=== PATIENT | female | born 1970 | race Caucasian/White ===

== ENCOUNTER 2022-05-02 21:25 | Emergency (ER) | payer MEDICAID ==
[~2022-05-02] VITALS: Ht 162.6 cm; Wt 48.0 kg
[~2022-05-02 21:25] MED LIST: LEVO500T2; METFORMIN
[2022-05-02] MEDS ORDERED: ONDANSETRON HCL 4MG/2ML INJ IV STA (23:54)
[2022-05-02] MEDS ORDERED: KETOROLAC 30MG/ML VIAL IV STA (23:54)
[2022-05-03] MEDS ORDERED: SODIUM CHLORIDE 0.9% 1,000 ML IV ONE
[2022-05-03 02:27] LABS: CLARITY URINE TURBID (CLEAR); COLOR URINE YELLOW (YELLOW); KETONES URINE NEGATIVE (NEGATIVE); LEUKOCYTE ESTERASE URINE 3+ (NEGATIVE); NITRITE URINE POSITIVE (NEGATIVE); OCCULT BLOOD URINE 2+ (NEGATIVE); PH URINE 6.5 (4.5-8.0); PROTEIN URINE 2+ (NEGATIVE); SPECIFIC GRAVITY URINE 1.006 (1.005-1.030); UROBILINOGEN URINE 0.2 E.U./dL (0.2-1.0)
[2022-05-03] MEDS ORDERED: ONDANSETRON HCL 4MG/2ML INJ IV NR (04:30)
[2022-05-03] MEDS ORDERED: KETOROLAC 30MG/ML VIAL IV NR (04:30)
[2022-05-03 05:01] LABS: BASOPHILS % 0.8 % (0.0-2.0); EOSINOPHILS % 1.4 % (0.0-5.0); HEMATOCRIT. 25.9 % (36.0-48.0); HEMOGLOBIN. 8.7 g/dL (12.0-16.0); LYMPHOCYTES % 39.9 % (20.0-50.0); MEAN CORPUSCULAR HEMOGLOBIN 37.6 pg (28.0-32.0); MEAN CORPUSCULAR VOLUME 112.1 fL (81.0-99.0); MEAN PLATELET VOLUME 6.9 fl (7.4-10.4); MONOCYTES % 8.3 % (2.0-8.0); NEUTROPHILS % 49.6 % (40.0-76.0); RED BLOOD CELL COUNT 2.31 mill/uL (4.2-5.4); RED CELL DISTRIBUTION WIDTH 13.6 % (11.6-14.6)
[2022-05-03 05:07] LABS: CHLORIDE 105 mEq/L (98-107)
[2022-05-03 05:09] LABS: PLATELET 41 x1000/uL (130-400)
[2022-05-03 05:18] LABS: ETHANOL BLOOD 297 mg/dL
[2022-05-03 05:20] LABS: PLATELET ESTIMATE DECREASED
[2022-05-03] MEDS ORDERED: CEPH500C2 MT (06:09)
[2022-05-03] MEDS ORDERED: CHLORDIAZEPOXIDE 25MG CAPSULE PO ONE (06:15)
[2022-05-03 06:47] VITALS: BP 125/77
== END 2022-05-03 06:46 | disposition home or self-care (01) ==
LOC: ER 21:25
DX: N10 Acute pyelonephritis (principal); T51.0X1A Toxic effect of ethanol, accidental (unintentional), initial encounter; E11.9 Type 2 diabetes mellitus without complications; D69.6 Thrombocytopenia, unspecified; Y90.8 Blood alcohol level of 240 mg/100 ml or more; Z79.84 Long term (current) use of oral hypoglycemic drugs; Y92.018 Other place in single-family (private) house as the place of occurrence of the external cause
CPT/HCPCS: 36415; 80053; 80320; 81003; 81025; 82962; 83690; 85025; 87077; 87086; 87186; 96374; 96375; 99284; J1885; J2405; G0480

== ENCOUNTER 2022-08-18 15:27 | Inpatient (IN) | payer MEDICAID ==
[~2022-08-18] VITALS: Ht 162.6 cm; Wt 78.0 kg
[~2022-08-18 15:27] MED LIST changes: +CEPH500C2 MT
[2022-08-18] MEDS ORDERED: SODIUM CHLORIDE 0.9% 1000ML BAG (SEPSIS BOLUS) IV ONE (16:15)
[2022-08-18] MEDS ORDERED: VANCOMYCIN 1G PREMIX 200 ML IV ONE (16:15)
[2022-08-18] MEDS ORDERED: CEFTRIAXONE 1 G PREMIX 50 ML IV ONE (16:15)
[2022-08-18 16:31] LABS: CLARITY URINE TURBID (CLEAR); COLOR URINE DARK YELLOW (YELLOW); KETONES URINE TRACE (NEGATIVE); LEUKOCYTE ESTERASE URINE 3+ (NEGATIVE); NITRITE URINE NEGATIVE (NEGATIVE); OCCULT BLOOD URINE 2+ (NEGATIVE); PH URINE 7.5 (4.5-8.0); PROTEIN URINE 3+ (NEGATIVE); SPECIFIC GRAVITY URINE 1.013 (1.005-1.030)
[2022-08-18 16:45] LABS: BASOPHILS % 0.2 % (0.0-2.0); EOSINOPHILS % 0.3 % (0.0-5.0); LYMPHOCYTES % 11.6 % (20.0-50.0); MEAN CORPUSCULAR HEMOGLOBIN 40.5 pg (28.0-32.0); MEAN CORPUSCULAR VOLUME 122.4 fL (81.0-99.0); MONOCYTES % 13.1 % (2.0-8.0); NEUTROPHILS % 74.8 % (40.0-76.0); RED BLOOD CELL COUNT 1.68 mill/uL (4.2-5.4); RED CELL DISTRIBUTION WIDTH 16.3 % (11.6-14.6)
[2022-08-18 16:51] LABS: HEMATOCRIT. 20.6 % (36.0-48.0); HEMOGLOBIN. 6.8 g/dL (12.0-16.0)
[2022-08-18 16:59] LABS: ETHANOL BLOOD < 10 mg/dL
[2022-08-18 17:03] LABS: CHLORIDE 105 mEq/L (98-107)
[2022-08-18 17:06] LABS: HCG SCREEN NEGATIVE
[2022-08-18 17:22] LABS: *AMPHETAMINES SCREEN URINE NEGATIVE (NEGATIVE); *BARBITURATES SCREEN URINE NEGATIVE (NEGATIVE); *BENZODIAZEPINES SCREEN URINE NEGATIVE (NEGATIVE); *COCAINE SCREEN URINE NEGATIVE (NEGATIVE); CANNABINOID URINE SCREEN PRESUMTIVE POSITIVE (NEGATIVE); METHADONE URINE SCREEN NEGATIVE (NEGATIVE); OPIATES URINE SCREEN NEGATIVE (NEGATIVE); PHENCYCLIDINE URINE SCREEN NEGATIVE (NEGATIVE)
[2022-08-18 17:54] LABS: PLATELET ESTIMATE MARKEDLY DECREASED
[2022-08-18 17:57] LABS: MEAN PLATELET VOLUME 9.9 fl (7.4-10.4); PLATELET 47 x1000/uL (130-400)
[2022-08-18] MEDS ORDERED: CLONIDINE 0.1MG TABLET PO PRN (20:45)
[2022-08-18] MEDS ORDERED: KETOROLAC 15MG/ML VIAL IV PRN (20:45)
[2022-08-18] MEDS ORDERED: ACETAMINOPHEN 325MG TABLET PO PRN (20:45)
[2022-08-18] MEDS ORDERED: DOCUSATE SODIUM 100MG CAPSULE PO PRN (20:45)
[2022-08-18] MEDS ORDERED: NITROGLYCERIN 0.4MG TABLET SL SL PRN (20:45)
[2022-08-18] MEDS ORDERED: MAGNESIUM/ALUMINUM HYDROXIDE/SIMETHICONE 30ML UDC PO PRN (20:45)
[2022-08-18] MEDS ORDERED: ZOLPIDEM TARTRATE 5MG TABLET PO PRN (20:45)
[2022-08-18] MEDS ORDERED: ONDANSETRON HCL 4MG/2ML INJ IV PRN (20:45)
[2022-08-18 21:55] LABS: T4 FREE 0.81 ng/dL (0.76-1.46)
[2022-08-18 22:00] VITALS: BP 100/65
[2022-08-19] VITALS (10 sets, daily range): BP systolic 92–114; BP diastolic 60–80
[2022-08-19 06:33] LABS: BASOPHILS % 0.3 % (0.0-2.0); EOSINOPHILS % 1.2 % (0.0-5.0); HEMATOCRIT. 22.1 % (36.0-48.0); HEMOGLOBIN. 7.6 g/dL (12.0-16.0); LYMPHOCYTES % 19.3 % (20.0-50.0); MEAN CORPUSCULAR HEMOGLOBIN 38.9 pg (28.0-32.0); MEAN PLATELET VOLUME 8.5 fl (7.4-10.4); MONOCYTES % 13.6 % (2.0-8.0); NEUTROPHILS % 65.6 % (40.0-76.0); RED BLOOD CELL COUNT 1.96 mill/uL (4.2-5.4); RED CELL DISTRIBUTION WIDTH 18.5 % (11.6-14.6)
[2022-08-19 06:53] LABS: CHLORIDE 106 mEq/L (98-107); PHOSPHORUS 1.5 mg/dL (2.5-4.9)
[2022-08-19 07:03] LABS: PLATELET 31 x1000/uL (130-400)
[2022-08-19] MEDS ORDERED: POTASSIUM CHLORIDE 20MEQ TABLET SR PO NR (07:45)
[2022-08-19] MEDS: INSULIN LISPRO 100 UNITS/ML SUBCUT SCH ×4 (08:20→22:39)
[2022-08-19] MEDS ORDERED: CEFTRIAXONE 1 G PREMIX 50 ML IV SCH (09:00)
[2022-08-19] MEDS: PANTOPRAZOLE SODIUM 40 MG/VIAL IV SCH (09:51)
[2022-08-19] MEDS: BLOOD SUGAR DIAGNOSTIC STRIP TEST SCH ×4 (09:53→21:00)
[2022-08-19] MEDS ORDERED: POTASSIUM CHLORIDE INJ 40 MEQ in DEXT 5%/0.9% NACL 1,000 ML IV SCH (12:00)
[2022-08-19] MEDS ORDERED: POTASSIUM PHOS,M-BASIC-D-BASIC 30 MMOL in DEXT 5% WATER 500 ML IV SCH (13:00)
[2022-08-19] MEDS ORDERED: MAGNESIUM 4 G PREMIX 100 ML IV SCH (13:00)
[2022-08-19] MEDS: CEFTRIAXONE 1,000 MG in DEXTROSE 5% WATER 50 ML IV SCH (14:42)
[2022-08-19] MEDS: KCL 20MEQ/100ML X 2 FOR TOTAL KCL 40MEQ/200ML IV SCH ×2 (15:19→17:44)
[2022-08-19 17:00] LABS: INR 1.6; PROTHROMBIN TIME 16.1 sec (9.6-11.0)
[2022-08-19] MEDS: DEXT 5%/LACTATED RINGERS 1,000 ML IV SCH ×2 (20:30→21:00)
[2022-08-20] VITALS (14 sets, daily range): BP systolic 86–132; BP diastolic 54–72
[2022-08-20] MEDS: BLOOD SUGAR DIAGNOSTIC STRIP TEST SCH ×4 (06:43→21:13)
[2022-08-20 07:16] LABS: HEMATOCRIT. 22.3 % (36.0-48.0); HEMOGLOBIN. 7.7 g/dL (12.0-16.0); MEAN CORPUSCULAR VOLUME 112.6 fL (81.0-99.0); RED BLOOD CELL COUNT 1.98 mill/uL (4.2-5.4); RED CELL DISTRIBUTION WIDTH 18.7 % (11.6-14.6)
[2022-08-20] MEDS: INSULIN LISPRO 100 UNITS/ML SUBCUT SCH ×4 (07:20→21:00)
[2022-08-20 08:41] LABS: PLATELET ESTIMATE MARKEDLY DECREASED
[2022-08-20 08:48] LABS: PLATELET 34 x1000/uL (130-400)
[2022-08-20] MEDS: PANTOPRAZOLE SODIUM 40 MG/VIAL IV SCH ×2 (08:55→21:13)
[2022-08-20] MEDS: CEFTRIAXONE 1,000 MG in DEXTROSE 5% WATER 50 ML IV SCH (08:55)
[2022-08-20 09:04] LABS: CHLORIDE 109 mEq/L (98-107)
[2022-08-20] MEDS ORDERED: PHYTONADIONE 10MG/ML AMP SUBCUT NR (11:15)
[2022-08-20 12:09] LABS: HEPATITIS B SURFACE ANTIGEN NEGATIVE
[2022-08-20] MEDS: DEXT 5%/LACTATED RINGERS 1,000 ML IV SCH (13:55)
[2022-08-21] VITALS (21 sets, daily range): BP systolic 75–125; BP diastolic 36–74
[2022-08-21 03:35] LABS: HEMATOCRIT. 24.5 % (36.0-48.0); HEMOGLOBIN. 8.2 g/dL (12.0-16.0); MEAN CORPUSCULAR HEMOGLOBIN 38.8 pg (28.0-32.0); MEAN CORPUSCULAR VOLUME 115.7 fL (81.0-99.0); MEAN PLATELET VOLUME 8.8 fl (7.4-10.4); RED BLOOD CELL COUNT 2.11 mill/uL (4.2-5.4); RED CELL DISTRIBUTION WIDTH 19.2 % (11.6-14.6)
[2022-08-21 03:43] LABS: INR 1.4; PLATELET 34 x1000/uL (130-400); PROTHROMBIN TIME 14.5 sec (9.6-11.0)
[2022-08-21] MEDS: DEXT 5%/LACTATED RINGERS 1,000 ML IV SCH (04:30)
[2022-08-21] MEDS ORDERED: PHYTONADIONE 10MG/ML AMP SUBCUT NR (04:45)
[2022-08-21 05:00] LABS: PLATELET ESTIMATE MARKEDLY DECREASED
[2022-08-21] MEDS: INSULIN LISPRO 100 UNITS/ML SUBCUT SCH ×4 (07:20→21:00)
[2022-08-21] MEDS: BLOOD SUGAR DIAGNOSTIC STRIP TEST SCH ×4 (07:39→21:10)
[2022-08-21] MEDS ORDERED: DEXT 5%/0.45% NACL 500ML 1,000 ML IV SCH (08:00)
[2022-08-21] MEDS ORDERED: LIDOCAINE HCL 1% 30ML VIAL (10MG/ML) ONE (09:20)
[2022-08-21] MEDS ORDERED: LACTULOSE 20G/30ML UDC PO NR (11:00)
[2022-08-21] MEDS: CEFTRIAXONE 1,000 MG in DEXTROSE 5% WATER 50 ML IV SCH (15:58)
[2022-08-21] MEDS: PANTOPRAZOLE SODIUM 40 MG/VIAL IV SCH ×2 (15:58→21:27)
[2022-08-21] MEDS: ACETAMINOPHEN 325MG TABLET PO PRN (18:17)
[2022-08-21] MEDS: DEXT 5%/0.45% NACL 1000ML 1,000 ML IV SCH (22:45)
[2022-08-22] VITALS (32 sets, daily range): BP systolic 85–118; BP diastolic 51–97
[2022-08-22 03:44] LABS: INR 1.3; PROTHROMBIN TIME 13.8 sec (9.6-11.0)
[2022-08-22 04:11] LABS: HEPATITIS B SURFACE ANTIGEN NEGATIVE
[2022-08-22] MEDS: BLOOD SUGAR DIAGNOSTIC STRIP TEST SCH ×4 (06:47→20:25)
[2022-08-22] MEDS: INSULIN LISPRO 100 UNITS/ML SUBCUT SCH ×4 (07:20→20:27)
[2022-08-22] MEDS: PANTOPRAZOLE SODIUM 40 MG/VIAL IV SCH ×2 (09:36→20:27)
[2022-08-22] MEDS: CEFTRIAXONE 1,000 MG in DEXTROSE 5% WATER 50 ML IV SCH (09:36)
[2022-08-22 10:25] LABS: BASOPHILS % 0.8 % (0.0-2.0); EOSINOPHILS % 1.1 % (0.0-5.0); LYMPHOCYTES % 28.7 % (20.0-50.0); MEAN CORPUSCULAR HEMOGLOBIN 38.8 pg (28.0-32.0); MEAN CORPUSCULAR VOLUME 113.5 fL (81.0-99.0); MONOCYTES % 14.7 % (2.0-8.0); NEUTROPHILS % 54.7 % (40.0-76.0); RED CELL DISTRIBUTION WIDTH 18.4 % (11.6-14.6)
[2022-08-22 10:36] LABS: HEMATOCRIT. 18.2 % (36.0-48.0); HEMOGLOBIN. 6.2 g/dL (12.0-16.0); PLATELET 33 x1000/uL (130-400)
[2022-08-22] MEDS: DEXT 5%/0.45% NACL 1000ML 1,000 ML IV SCH (11:17)
[2022-08-22] MEDS: OCTREOTIDE 1,000 MCG in SODIUM CHLORIDE 0.9% 98 ML IV SCH (18:10)
[2022-08-23] VITALS (18 sets, daily range): BP systolic 98–138; BP diastolic 58–104
[2022-08-23] MEDS: DEXT 5%/0.45% NACL 1000ML 1,000 ML IV SCH ×2 (00:54→14:52)
[2022-08-23] MEDS: BLOOD SUGAR DIAGNOSTIC STRIP TEST SCH ×4 (06:52→21:55)
[2022-08-23] MEDS: INSULIN LISPRO 100 UNITS/ML SUBCUT SCH ×4 (07:20→21:00)
[2022-08-23 08:14] LABS: BASOPHILS % 0.6 % (0.0-2.0); EOSINOPHILS % 0.7 % (0.0-5.0); HEMATOCRIT. 31.3 % (36.0-48.0); HEMOGLOBIN. 10.7 g/dL (12.0-16.0); LYMPHOCYTES % 20.5 % (20.0-50.0); MEAN CORPUSCULAR HEMOGLOBIN 32.8 pg (28.0-32.0); MEAN CORPUSCULAR VOLUME 95.8 fL (81.0-99.0); MEAN PLATELET VOLUME 8.7 fl (7.4-10.4); MONOCYTES % 10.4 % (2.0-8.0); NEUTROPHILS % 67.8 % (40.0-76.0); RED BLOOD CELL COUNT 3.27 mill/uL (4.2-5.4); RED CELL DISTRIBUTION WIDTH 28.8 % (11.6-14.6)
[2022-08-23 08:23] LABS: INR 1.3
[2022-08-23 08:42] LABS: PLATELET 43 x1000/uL (130-400)
[2022-08-23] MEDS: CEFTRIAXONE 1,000 MG in DEXTROSE 5% WATER 50 ML IV SCH (09:59)
[2022-08-23] MEDS: PANTOPRAZOLE SODIUM 40 MG/VIAL IV SCH ×2 (09:59→21:58)
[2022-08-23 13:07] LABS: PLATELET ESTIMATE MARKEDLY DECREASED
[2022-08-23] MEDS: OCTREOTIDE 1,000 MCG in SODIUM CHLORIDE 0.9% 98 ML IV SCH (14:52)
[2022-08-24] VITALS (14 sets, daily range): BP systolic 122–143; BP diastolic 73–103
[2022-08-24] MEDS: DEXT 5%/0.45% NACL 1000ML 1,000 ML IV SCH ×2 (03:57→17:14)
[2022-08-24] MEDS: BLOOD SUGAR DIAGNOSTIC STRIP TEST SCH ×4 (07:47→20:46)
[2022-08-24] MEDS: PANTOPRAZOLE SODIUM 40 MG/VIAL IV SCH ×2 (08:35→20:37)
[2022-08-24] MEDS: CEFTRIAXONE 1,000 MG in DEXTROSE 5% WATER 50 ML IV SCH (08:36)
[2022-08-24] MEDS: INSULIN LISPRO 100 UNITS/ML SUBCUT SCH ×4 (08:37→20:46)
[2022-08-24 10:20] LABS: BASOPHILS % 0.8 % (0.0-2.0); EOSINOPHILS % 0.6 % (0.0-5.0); LYMPHOCYTES % 17.2 % (20.0-50.0); MEAN CORPUSCULAR HEMOGLOBIN 33.1 pg (28.0-32.0); MEAN CORPUSCULAR VOLUME 95.9 fL (81.0-99.0); MEAN PLATELET VOLUME 8.7 fl (7.4-10.4); MONOCYTES % 8.5 % (2.0-8.0); NEUTROPHILS % 72.9 % (40.0-76.0); RED BLOOD CELL COUNT 3.34 mill/uL (4.2-5.4); RED CELL DISTRIBUTION WIDTH 28.3 % (11.6-14.6)
[2022-08-24 10:26] LABS: CHLORIDE 107 mEq/L (98-107)
[2022-08-24 10:27] LABS: INR 1.4; PROTHROMBIN TIME 14.7 sec (9.6-11.0)
[2022-08-24] MEDS ORDERED: PROPOFOL 200MG/20ML VIAL IV ONE (10:43)
[2022-08-24] MEDS ORDERED: PHENYLEPHRINE HCL 10 MG/ML 1ML (IV VIAL) IV ONE (10:48)
[2022-08-24] MEDS: OCTREOTIDE 1,000 MCG in SODIUM CHLORIDE 0.9% 98 ML IV SCH (12:32)
[2022-08-24 12:52] LABS: PLATELET 41 x1000/uL (130-400)
[2022-08-24] MEDS: ACETAMINOPHEN 325MG TABLET PO PRN (20:37)
[2022-08-24] MEDS ORDERED: SORBITOL 70% SOLN 30ML PO SCH (21:00)
[2022-08-25] VITALS (14 sets, daily range): BP systolic 117–144; BP diastolic 72–95
[2022-08-25] MEDS: OCTREOTIDE 1,000 MCG in SODIUM CHLORIDE 0.9% 98 ML IV SCH (03:51)
[2022-08-25] MEDS ORDERED: SORBITOL 70% SOLN 30ML PO SCH (06:00)
[2022-08-25] MEDS: INSULIN LISPRO 100 UNITS/ML SUBCUT SCH ×4 (07:20→21:37)
[2022-08-25] MEDS: BLOOD SUGAR DIAGNOSTIC STRIP TEST SCH ×4 (07:30→21:24)
[2022-08-25] MEDS: DEXT 5%/0.45% NACL 1000ML 1,000 ML IV SCH (07:31)
[2022-08-25] MEDS ORDERED: NA PHOS,M-B/NA PHOS,DI-BA ENEMA 118ML PR SCH ×2 (08:00→08:15)
[2022-08-25] MEDS: PANTOPRAZOLE SODIUM 40 MG/VIAL IV SCH ×2 (09:14→21:24)
[2022-08-25 12:08] LABS: BASOPHILS % 0.2 % (0.0-2.0); EOSINOPHILS % 0.3 % (0.0-5.0); HEMATOCRIT. 32.7 % (36.0-48.0); HEMOGLOBIN. 11.2 g/dL (12.0-16.0); LYMPHOCYTES % 18.7 % (20.0-50.0); MEAN CORPUSCULAR HEMOGLOBIN 32.8 pg (28.0-32.0); MEAN CORPUSCULAR VOLUME 96.2 fL (81.0-99.0); MEAN PLATELET VOLUME 8.3 fl (7.4-10.4); MONOCYTES % 6.2 % (2.0-8.0); NEUTROPHILS % 74.6 % (40.0-76.0)
[2022-08-25 12:14] LABS: PLATELET 41 x1000/uL (130-400)
[2022-08-25 12:20] LABS: INR 1.5; PROTHROMBIN TIME 15.6 sec (9.6-11.0)
[2022-08-25] MEDS ORDERED: SIMETHICONE 40 MG/0.6 ML 15ML ONE (14:50)
[2022-08-25] MEDS ORDERED: PROPOFOL 200MG/20ML VIAL IV ONE (15:04)
[2022-08-25] MEDS ORDERED: MIDAZOLAM HCL 2 MG/2 ML VIAL ONE (15:05)
[2022-08-25] MEDS ORDERED: DEXAMETHASONE 4MG/ML 1ML VIAL ONE (15:06)
[2022-08-25] MEDS ORDERED: ONDANSETRON HCL 4MG/2ML INJ ONE (15:06)
[2022-08-25] MEDS ORDERED: FENTANYL CITRATE/PF 50MCG/ML 2ML VIAL ONE (15:06)
[2022-08-26] VITALS (14 sets, daily range): BP systolic 113–140; BP diastolic 64–88
[2022-08-26] MEDS: INSULIN LISPRO 100 UNITS/ML SUBCUT SCH ×4 (07:20→22:05)
[2022-08-26] MEDS: BLOOD SUGAR DIAGNOSTIC STRIP TEST SCH ×4 (08:09→22:05)
[2022-08-26] MEDS: DEXT 5%/0.45% NACL 1000ML 1,000 ML IV SCH ×2 (08:40→22:06)
[2022-08-26] MEDS: PANTOPRAZOLE SODIUM 40 MG/VIAL IV SCH ×2 (09:45→22:06)
[2022-08-26] MEDS: FOLIC ACID 1MG TABLET PO SCH (12:24)
[2022-08-26] MEDS: THIAMINE HCL 100MG TABLET PO SCH (12:24)
[2022-08-26 12:39] LABS: BASOPHILS % 0.3 % (0.0-2.0); EOSINOPHILS % 0.5 % (0.0-5.0); HEMATOCRIT. 30.7 % (36.0-48.0); HEMOGLOBIN. 10.2 g/dL (12.0-16.0); LYMPHOCYTES % 14.3 % (20.0-50.0); MEAN CORPUSCULAR HEMOGLOBIN 32.2 pg (28.0-32.0); MEAN CORPUSCULAR VOLUME 96.8 fL (81.0-99.0); NEUTROPHILS % 78.9 % (40.0-76.0); RED BLOOD CELL COUNT 3.17 mill/uL (4.2-5.4); RED CELL DISTRIBUTION WIDTH 28.5 % (11.6-14.6)
[2022-08-26 12:48] LABS: PLATELET 31 x1000/uL (130-400)
[2022-08-26 13:37] LABS: PLATELET ESTIMATE MARKEDLY DECREASED
[2022-08-26] MEDS: ACETAMINOPHEN 325MG TABLET PO PRN (22:06)
[2022-08-27] VITALS (13 sets, daily range): BP systolic 108–140; BP diastolic 57–93
[2022-08-27] MEDS: BLOOD SUGAR DIAGNOSTIC STRIP TEST SCH ×4 (06:27→23:17)
[2022-08-27] MEDS: INSULIN LISPRO 100 UNITS/ML SUBCUT SCH ×4 (06:27→23:17)
[2022-08-27] MEDS: ACETAMINOPHEN 325MG TABLET PO PRN ×3 (06:30→17:21)
[2022-08-27 06:51] LABS: BASOPHILS % 0.7 % (0.0-2.0); EOSINOPHILS % 0.5 % (0.0-5.0); HEMATOCRIT. 29.1 % (36.0-48.0); HEMOGLOBIN. 9.8 g/dL (12.0-16.0); LYMPHOCYTES % 18.4 % (20.0-50.0); MEAN CORPUSCULAR HEMOGLOBIN 32.8 pg (28.0-32.0); MEAN CORPUSCULAR VOLUME 96.9 fL (81.0-99.0); MEAN PLATELET VOLUME 8.2 fl (7.4-10.4); NEUTROPHILS % 75.4 % (40.0-76.0)
[2022-08-27 07:07] LABS: PLATELET 27 x1000/uL (130-400)
[2022-08-27] MEDS: PANTOPRAZOLE SODIUM 40 MG/VIAL IV SCH ×2 (09:11→23:17)
[2022-08-27] MEDS: THIAMINE HCL 100MG TABLET PO SCH (09:11)
[2022-08-27] MEDS: FOLIC ACID 1MG TABLET PO SCH (09:11)
[2022-08-27] MEDS ORDERED: FERR325T6 MT (11:08)
[2022-08-27] MEDS ORDERED: FOLI-43 PO (11:08)
[2022-08-27] MEDS ORDERED: THIA100T72 PO (11:08)
[2022-08-27] MEDS ORDERED: OMEP40CA20 MT (11:08)
[2022-08-27] MEDS ORDERED: SUCR1TAB30 MT (11:08)
[2022-08-27] MEDS: DEXT 5%/0.45% NACL 1000ML 1,000 ML IV SCH ×2 (11:20→23:18)
[2022-08-28] VITALS (14 sets, daily range): BP systolic 108–143; BP diastolic 55–86
[2022-08-28 07:12] LABS: BASOPHILS % 0.8 % (0.0-2.0); EOSINOPHILS % 0.3 % (0.0-5.0); HEMATOCRIT. 30.9 % (36.0-48.0); LYMPHOCYTES % 30.9 % (20.0-50.0); MEAN CORPUSCULAR HEMOGLOBIN 32.7 pg (28.0-32.0); MEAN CORPUSCULAR VOLUME 100.7 fL (81.0-99.0); MEAN PLATELET VOLUME 8.7 fl (7.4-10.4); MONOCYTES % 4.2 % (2.0-8.0); NEUTROPHILS % 63.8 % (40.0-76.0); RED BLOOD CELL COUNT 3.06 mill/uL (4.2-5.4); RED CELL DISTRIBUTION WIDTH 27.8 % (11.6-14.6)
[2022-08-28] MEDS: BLOOD SUGAR DIAGNOSTIC STRIP TEST SCH ×4 (07:13→22:01)
[2022-08-28] MEDS: INSULIN LISPRO 100 UNITS/ML SUBCUT SCH ×4 (07:14→22:01)
[2022-08-28] MEDS: THIAMINE HCL 100MG TABLET PO SCH (08:57)
[2022-08-28] MEDS: PANTOPRAZOLE SODIUM 40 MG/VIAL IV SCH (08:57)
[2022-08-28] MEDS: FOLIC ACID 1MG TABLET PO SCH (08:57)
[2022-08-28 09:34] LABS: PLATELET 25 x1000/uL (130-400)
[2022-08-28] MEDS: SUCRALFATE 1 G/10 ML UDC PO SCH ×3 (12:04→22:05)
[2022-08-28] MEDS: DEXT 5%/0.45% NACL 1000ML 1,000 ML IV SCH (14:50)
[2022-08-28] MEDS: GUAIFENESIN 200MG/10ML SUGAR FREE UDC PO PRN (22:00)
[2022-08-29] VITALS (12 sets, daily range): BP systolic 118–149; BP diastolic 67–99
[2022-08-29] MEDS: DEXT 5%/0.45% NACL 1000ML 1,000 ML IV SCH ×3 (03:20→16:40)
[2022-08-29] MEDS: BLOOD SUGAR DIAGNOSTIC STRIP TEST SCH ×4 (06:50→21:00)
[2022-08-29] MEDS: OMEPRAZOLE 20MG CAPSULE EXTENDED RELEASE PO SCH (06:50)
[2022-08-29] MEDS: SUCRALFATE 1 G/10 ML UDC PO SCH ×4 (06:50→21:00)
[2022-08-29] MEDS: INSULIN LISPRO 100 UNITS/ML SUBCUT SCH ×4 (06:50→21:00)
[2022-08-29] MEDS: THIAMINE HCL 100MG TABLET PO SCH (08:17)
[2022-08-29] MEDS: FOLIC ACID 1MG TABLET PO SCH (08:17)
[2022-08-29 09:38] LABS: BASOPHILS % 0.4 % (0.0-2.0); EOSINOPHILS % 0.2 % (0.0-5.0); HEMATOCRIT. 33.9 % (36.0-48.0); HEMOGLOBIN. 11.2 g/dL (12.0-16.0); LYMPHOCYTES % 13.2 % (20.0-50.0); MEAN CORPUSCULAR HEMOGLOBIN 32.2 pg (28.0-32.0); MEAN CORPUSCULAR VOLUME 97.5 fL (81.0-99.0); MEAN PLATELET VOLUME 8.8 fl (7.4-10.4); MONOCYTES % 4.3 % (2.0-8.0); NEUTROPHILS % 81.9 % (40.0-76.0); RED BLOOD CELL COUNT 3.47 mill/uL (4.2-5.4); RED CELL DISTRIBUTION WIDTH 27.6 % (11.6-14.6)
[2022-08-29 09:41] LABS: PLATELET 46 x1000/uL (130-400)
[2022-08-29 17:00] LABS: BG BASE EXCESS -5.1 mmol/L (-2.0-2.0); BG CARBOXYHEMOGLOBIN 1.3 % (0.5-1.5); BG HCO3 ACT 16.7 mmol/L (22.0-26.0); BG METHEMOGLOBIN 0.3 % (0.0-1.5); BG OXYGEN SATURATION 92.9 % (92.0-98.5); BG OXYHEMOGLOBIN 91.4 % (94.0-97.0); BG PCO2 22.7 mmHg (35.0-45.0); BG PH 7.485 (7.350-7.450); BG PO2 61.7 mmHg (75.0-100.0); BG TOTAL HEMOGLOBIN 11.1 g/dL (12.0-18.0); BG VENT MODE ROOM AIR
[2022-08-29 18:23] LABS: HEMATOCRIT. 30.5 % (36.0-48.0); HEMOGLOBIN. 10.1 g/dL (12.0-16.0); MEAN CORPUSCULAR HEMOGLOBIN 32.1 pg (28.0-32.0); MEAN CORPUSCULAR VOLUME 97.2 fL (81.0-99.0); MEAN PLATELET VOLUME 8.4 fl (7.4-10.4); RED BLOOD CELL COUNT 3.14 mill/uL (4.2-5.4); RED CELL DISTRIBUTION WIDTH 28.1 % (11.6-14.6)
[2022-08-29 18:32] LABS: PLATELET 46 x1000/uL (130-400)
[2022-08-29 21:30] LABS: PLATELET ESTIMATE MARKEDLY DECREASED
[2022-08-29] MEDS ORDERED: METRONIDAZOLE 500MG TABLET PO SCH (22:00)
[2022-08-29] MEDS ORDERED: LACTULOSE 300 ML in WATER FOR IRRIGATION,STERILE 700 ML IR NR (22:30)
[2022-08-29] MEDS ORDERED: IOHEXOL-300 100 ML BOTTLE ONE (22:50)
[2022-08-29] MEDS: METRONIDAZOLE 500 MG PREMIX 100 ML IV SCH (23:32)
[2022-08-29] MEDS: CEFEPIME 1,000 MG in DEXTROSE 5% WATER 50 ML IV SCH (23:48)
[2022-08-30] VITALS (12 sets, daily range): BP systolic 100–146; BP diastolic 61–90
[2022-08-30] MEDS: OMEPRAZOLE 20MG CAPSULE EXTENDED RELEASE PO SCH (06:13)
[2022-08-30] MEDS: SUCRALFATE 1 G/10 ML UDC PO SCH ×4 (06:13→20:14)
[2022-08-30] MEDS ORDERED: LACTULOSE 20G/30ML UDC PO PRN (06:15)
[2022-08-30] MEDS: METRONIDAZOLE 500 MG PREMIX 100 ML IV SCH ×3 (06:21→20:55)
[2022-08-30] MEDS: DEXT 5%/0.45% NACL 1000ML 1,000 ML IV SCH ×2 (06:23→20:13)
[2022-08-30] MEDS: BLOOD SUGAR DIAGNOSTIC STRIP TEST SCH ×4 (06:23→20:22)
[2022-08-30] MEDS: INSULIN LISPRO 100 UNITS/ML SUBCUT SCH ×4 (07:20→20:22)
[2022-08-30] MEDS: FOLIC ACID 1MG TABLET PO SCH (07:56)
[2022-08-30] MEDS: THIAMINE HCL 100MG TABLET PO SCH (07:56)
[2022-08-30] MEDS ORDERED: SODIUM CHLORIDE 3% FOR INH 4ML UD NEB INH NR (08:00)
[2022-08-30 08:42] LABS: BASOPHILS % 0.3 % (0.0-2.0); HEMATOCRIT. 27.8 % (36.0-48.0); HEMOGLOBIN. 9.3 g/dL (12.0-16.0); LYMPHOCYTES % 7.5 % (20.0-50.0); MEAN CORPUSCULAR HEMOGLOBIN 33.1 pg (28.0-32.0); MEAN CORPUSCULAR VOLUME 99.3 fL (81.0-99.0); MEAN PLATELET VOLUME 9.3 fl (7.4-10.4); NEUTROPHILS % 89.2 % (40.0-76.0); RED CELL DISTRIBUTION WIDTH 28.4 % (11.6-14.6)
[2022-08-30 08:47] LABS: PLATELET 28 x1000/uL (130-400)
[2022-08-30] MEDS: CEFEPIME 1,000 MG in DEXTROSE 5% WATER 50 ML IV SCH ×2 (08:52→20:13)
[2022-08-30] MEDS: THIAMINE HCL 500 MG in SODIUM CHLORIDE 0.9% 95 ML IV SCH ×3 (12:24→23:17)
[2022-08-30] MEDS ORDERED: ACETYLCYSTEINE 100MG/ML 10% VIAL 4ML INH SCH (14:00)
[2022-08-30] MEDS ORDERED: IOHEXOL-300 100 ML BOTTLE ONE (17:53)
[2022-08-31] VITALS (19 sets, daily range): BP systolic 108–146; BP diastolic 57–80
[2022-08-31] MEDS: METRONIDAZOLE 500 MG PREMIX 100 ML IV SCH ×3 (05:00→21:34)
[2022-08-31] MEDS: SUCRALFATE 1 G/10 ML UDC PO SCH ×4 (05:15→20:36)
[2022-08-31] MEDS: OMEPRAZOLE 20MG CAPSULE EXTENDED RELEASE PO SCH (05:15)
[2022-08-31] MEDS: THIAMINE HCL 500 MG in SODIUM CHLORIDE 0.9% 95 ML IV SCH ×3 (05:58→21:34)
[2022-08-31] MEDS: BLOOD SUGAR DIAGNOSTIC STRIP TEST SCH ×4 (06:35→21:20)
[2022-08-31] MEDS: INSULIN LISPRO 100 UNITS/ML SUBCUT SCH ×4 (06:35→21:00)
[2022-08-31 06:54] LABS: BASOPHILS % 0.2 % (0.0-2.0); EOSINOPHILS % 0.2 % (0.0-5.0); HEMATOCRIT. 24.2 % (36.0-48.0); HEMOGLOBIN. 8.1 g/dL (12.0-16.0); LYMPHOCYTES % 9.4 % (20.0-50.0); MEAN CORPUSCULAR HEMOGLOBIN 32.5 pg (28.0-32.0); MEAN CORPUSCULAR VOLUME 97.1 fL (81.0-99.0); MEAN PLATELET VOLUME 9.1 fl (7.4-10.4); MONOCYTES % 4.3 % (2.0-8.0); NEUTROPHILS % 85.9 % (40.0-76.0); RED CELL DISTRIBUTION WIDTH 27.9 % (11.6-14.6)
[2022-08-31 07:38] LABS: PLATELET 26 x1000/uL (130-400)
[2022-08-31] MEDS: FOLIC ACID 1MG TABLET PO SCH (08:20)
[2022-08-31] MEDS: CEFEPIME 1,000 MG in DEXTROSE 5% WATER 50 ML IV SCH ×2 (08:20→20:36)
[2022-08-31] MEDS: DEXT 5%/0.45% NACL 1000ML 1,000 ML IV SCH (08:21)
[2022-08-31] MEDS: LACTULOSE 20G/30ML UDC PO SCH ×2 (13:20→21:34)
[2022-08-31] MEDS: ACETAMINOPHEN 325MG TABLET PO PRN (18:21)
[2022-09-01] VITALS (15 sets, daily range): BP systolic 84–129; BP diastolic 49–93
[2022-09-01] MEDS: DEXT 5%/0.45% NACL 1000ML 1,000 ML IV SCH ×2 (01:03→12:29)
[2022-09-01] MEDS: THIAMINE HCL 500 MG in SODIUM CHLORIDE 0.9% 95 ML IV SCH ×3 (05:36→21:45)
[2022-09-01] MEDS: METRONIDAZOLE 500 MG PREMIX 100 ML IV SCH ×3 (05:36→21:45)
[2022-09-01 05:44] LABS: HEMOGLOBIN 7.5 g/dL (12.0-16.0); MEAN CORPUSCULAR HEMOGLOBIN 33.1 pg (28.0-32.0); MEAN CORPUSCULAR VOLUME 97.2 fL (81.0-99.0); RED BLOOD CELL COUNT 2.27 mill/uL (4.2-5.4); RED CELL DISTRIBUTION WIDTH 27.7 % (11.6-14.6)
[2022-09-01 05:48] LABS: INR 1.6; PROTHROMBIN TIME 16.9 sec (9.6-11.0)
[2022-09-01] MEDS: LACTULOSE 20G/30ML UDC PO SCH ×3 (06:00→21:45)
[2022-09-01 06:07] LABS: CHLORIDE 114 mEq/L (98-107)
[2022-09-01] MEDS: SUCRALFATE 1 G/10 ML UDC PO SCH ×4 (06:10→20:42)
[2022-09-01] MEDS: OMEPRAZOLE 20MG CAPSULE EXTENDED RELEASE PO SCH (06:10)
[2022-09-01] MEDS: BLOOD SUGAR DIAGNOSTIC STRIP TEST SCH ×4 (06:10→20:35)
[2022-09-01 06:13] LABS: PLATELET 39 x1000/uL (130-400)
[2022-09-01] MEDS: INSULIN LISPRO 100 UNITS/ML SUBCUT SCH ×4 (07:20→20:43)
[2022-09-01] MEDS: FOLIC ACID 1MG TABLET PO SCH (09:06)
[2022-09-01] MEDS: CEFEPIME 1,000 MG in DEXTROSE 5% WATER 50 ML IV SCH ×2 (09:06→20:42)
[2022-09-01] MEDS ORDERED: POTASSIUM CHLORIDE 20MEQ/PACKET PO NR (10:15)
[2022-09-02] VITALS (16 sets, daily range): BP systolic 91–139; BP diastolic 54–86
[2022-09-02] MEDS: DEXT 5%/0.45% NACL 1000ML 1,000 ML IV SCH ×2 (01:23→08:50)
[2022-09-02 02:17] LABS: BASOPHILS % 0.4 % (0.0-2.0); EOSINOPHILS % 0.4 % (0.0-5.0); HEMATOCRIT. 26.3 % (36.0-48.0); HEMOGLOBIN. 8.2 g/dL (12.0-16.0); MEAN CORPUSCULAR HEMOGLOBIN 32.9 pg (28.0-32.0); MEAN CORPUSCULAR VOLUME 105.7 fL (81.0-99.0); MEAN PLATELET VOLUME 9.9 fl (7.4-10.4); MONOCYTES % 4.5 % (2.0-8.0); NEUTROPHILS % 62.7 % (40.0-76.0); RED BLOOD CELL COUNT 2.49 mill/uL (4.2-5.4); RED CELL DISTRIBUTION WIDTH 28.6 % (11.6-14.6)
[2022-09-02 02:32] LABS: PLATELET 39 x1000/uL (130-400)
[2022-09-02] MEDS: LACTULOSE 20G/30ML UDC PO SCH ×3 (06:15→21:32)
[2022-09-02] MEDS: SUCRALFATE 1 G/10 ML UDC PO SCH ×4 (06:15→21:32)
[2022-09-02] MEDS: OMEPRAZOLE 20MG CAPSULE EXTENDED RELEASE PO SCH (06:17)
[2022-09-02 06:53] LABS: INR 1.6; PROTHROMBIN TIME 16.8 sec (9.6-11.0)
[2022-09-02] MEDS: BLOOD SUGAR DIAGNOSTIC STRIP TEST SCH ×4 (06:56→20:57)
[2022-09-02] MEDS: INSULIN LISPRO 100 UNITS/ML SUBCUT SCH ×4 (08:00→20:58)
[2022-09-02] MEDS: CEFEPIME 1,000 MG in DEXTROSE 5% WATER 50 ML IV SCH ×2 (08:32→21:32)
[2022-09-02] MEDS: FOLIC ACID 1MG TABLET PO SCH (08:32)
[2022-09-02] MEDS: METRONIDAZOLE 500 MG PREMIX 100 ML IV SCH ×3 (08:32→21:33)
[2022-09-02] MEDS: THIAMINE HCL 200 MG in SODIUM CHLORIDE 0.9% 98 ML IV SCH (08:50)
[2022-09-02 10:01] LABS: BASOPHILS % 0.3 % (0.0-2.0); EOSINOPHILS % 0.7 % (0.0-5.0); HEMATOCRIT. 21.9 % (36.0-48.0); HEMOGLOBIN. 7.4 g/dL (12.0-16.0); LYMPHOCYTES % 19.2 % (20.0-50.0); MEAN CORPUSCULAR HEMOGLOBIN 32.7 pg (28.0-32.0); MEAN CORPUSCULAR VOLUME 97.2 fL (81.0-99.0); MEAN PLATELET VOLUME 9.3 fl (7.4-10.4); MONOCYTES % 3.9 % (2.0-8.0); NEUTROPHILS % 75.9 % (40.0-76.0); RED BLOOD CELL COUNT 2.25 mill/uL (4.2-5.4); RED CELL DISTRIBUTION WIDTH 27.8 % (11.6-14.6)
[2022-09-02 15:24] LABS: PLATELET 39 x1000/uL (130-400); PLATELET ESTIMATE MARKEDLY DECREASED
[2022-09-02] MEDS: PHYTONADIONE 10MG/ML AMP SUBCUT SCH (16:19)
[2022-09-02] MEDS: MIDODRINE HCL 2.5MG TABLET PO SCH (16:19)
[2022-09-02] MEDS ORDERED: ALBUMIN HUMAN 25GM/100ML (25%) IV NR (16:30)
[2022-09-03] VITALS (14 sets, daily range): BP systolic 98–133; BP diastolic 61–78
[2022-09-03] MEDS: ACETAMINOPHEN 325MG TABLET PO PRN (00:18)
[2022-09-03] MEDS: SUCRALFATE 1 G/10 ML UDC PO SCH ×4 (06:21→21:50)
[2022-09-03] MEDS: LACTULOSE 20G/30ML UDC PO SCH ×3 (06:22→21:50)
[2022-09-03] MEDS: OMEPRAZOLE 20MG CAPSULE EXTENDED RELEASE PO SCH (06:22)
[2022-09-03] MEDS: THIAMINE HCL 200 MG in SODIUM CHLORIDE 0.9% 98 ML IV SCH (06:22)
[2022-09-03] MEDS: BLOOD SUGAR DIAGNOSTIC STRIP TEST SCH ×4 (06:34→21:46)
[2022-09-03] MEDS: INSULIN LISPRO 100 UNITS/ML SUBCUT SCH ×4 (06:35→21:00)
[2022-09-03 06:39] LABS: BASOPHILS % 0.5 % (0.0-2.0); EOSINOPHILS % 0.6 % (0.0-5.0); LYMPHOCYTES % 19.9 % (20.0-50.0); MEAN CORPUSCULAR HEMOGLOBIN 33.9 pg (28.0-32.0); MEAN CORPUSCULAR VOLUME 100.8 fL (81.0-99.0); MEAN PLATELET VOLUME 10.4 fl (7.4-10.4); MONOCYTES % 5.9 % (2.0-8.0); NEUTROPHILS % 73.1 % (40.0-76.0); RED BLOOD CELL COUNT 2.05 mill/uL (4.2-5.4); RED CELL DISTRIBUTION WIDTH 27.7 % (11.6-14.6)
[2022-09-03] MEDS: METRONIDAZOLE 500 MG PREMIX 100 ML IV SCH ×2 (07:09→13:49)
[2022-09-03 07:34] LABS: HEMATOCRIT. 20.7 % (36.0-48.0); HEMOGLOBIN. 6.9 g/dL (12.0-16.0)
[2022-09-03 07:35] LABS: PLATELET 33 x1000/uL (130-400)
[2022-09-03] MEDS: CEFEPIME 1,000 MG in DEXTROSE 5% WATER 50 ML IV SCH (08:23)
[2022-09-03] MEDS: PHYTONADIONE 10MG/ML AMP SUBCUT SCH (08:24)
[2022-09-03] MEDS: MIDODRINE HCL 2.5MG TABLET PO SCH ×3 (08:24→17:42)
[2022-09-03] MEDS: FOLIC ACID 1MG TABLET PO SCH (08:24)
[2022-09-03] MEDS ORDERED: ALBUMIN HUMAN 25GM/100ML (25%) IV NR (14:00)
[2022-09-04] VITALS (9 sets, daily range): BP systolic 108–126; BP diastolic 70–86
[2022-09-04 01:30] LABS: HEMATOCRIT 24.8 % (36.0-48.0); HEMOGLOBIN 8.7 g/dL (12.0-16.0)
[2022-09-04 01:40] LABS: INR 1.9; PROTHROMBIN TIME 19.8 sec (9.6-11.0)
[2022-09-04] MEDS: THIAMINE HCL 200 MG in SODIUM CHLORIDE 0.9% 98 ML IV SCH (05:22)
[2022-09-04] MEDS: LACTULOSE 20G/30ML UDC PO SCH ×3 (05:50→21:30)
[2022-09-04] MEDS: OMEPRAZOLE 20MG CAPSULE EXTENDED RELEASE PO SCH (05:50)
[2022-09-04] MEDS: SUCRALFATE 1 G/10 ML UDC PO SCH ×4 (05:50→21:30)
[2022-09-04] MEDS: BLOOD SUGAR DIAGNOSTIC STRIP TEST SCH ×4 (06:05→20:30)
[2022-09-04] MEDS: INSULIN LISPRO 100 UNITS/ML SUBCUT SCH ×4 (06:25→20:30)
[2022-09-04 08:20] LABS: BASOPHILS % 0.4 % (0.0-2.0); EOSINOPHILS % 0.3 % (0.0-5.0); HEMATOCRIT. 28.9 % (36.0-48.0); HEMOGLOBIN. 9.7 g/dL (12.0-16.0); LYMPHOCYTES % 10.3 % (20.0-50.0); MEAN CORPUSCULAR HEMOGLOBIN 33.2 pg (28.0-32.0); MEAN CORPUSCULAR VOLUME 98.4 fL (81.0-99.0); MEAN PLATELET VOLUME 10.4 fl (7.4-10.4); MONOCYTES % 6.7 % (2.0-8.0); NEUTROPHILS % 82.3 % (40.0-76.0); RED BLOOD CELL COUNT 2.93 mill/uL (4.2-5.4); RED CELL DISTRIBUTION WIDTH 21.9 % (11.6-14.6)
[2022-09-04 08:29] LABS: PLATELET 30 x1000/uL (130-400)
[2022-09-04] MEDS: MIDODRINE HCL 2.5MG TABLET PO SCH ×3 (11:57→18:35)
[2022-09-04] MEDS: FOLIC ACID 1MG TABLET PO SCH (11:57)
[2022-09-04] MEDS: PHYTONADIONE 10MG/ML AMP SUBCUT SCH (12:01)
[2022-09-04] MEDS ORDERED: ALBUMIN HUMAN 25GM/100ML (25%) IV NR (18:00)
[2022-09-05] VITALS (9 sets, daily range): BP systolic 100–133; BP diastolic 65–78
[2022-09-05] MEDS: OMEPRAZOLE 20MG CAPSULE EXTENDED RELEASE PO SCH (05:28)
[2022-09-05] MEDS: THIAMINE HCL 200 MG in SODIUM CHLORIDE 0.9% 98 ML IV SCH (05:28)
[2022-09-05] MEDS: LACTULOSE 20G/30ML UDC PO SCH (05:28)
[2022-09-05] MEDS: SUCRALFATE 1 G/10 ML UDC PO SCH ×4 (05:29→21:29)
[2022-09-05] MEDS: BLOOD SUGAR DIAGNOSTIC STRIP TEST SCH ×4 (05:29→21:29)
[2022-09-05] MEDS: INSULIN LISPRO 100 UNITS/ML SUBCUT SCH ×4 (05:46→21:00)
[2022-09-05 07:25] LABS: BASOPHILS % 0.7 % (0.0-2.0); EOSINOPHILS % 0.5 % (0.0-5.0); HEMOGLOBIN. 8.9 g/dL (12.0-16.0); LYMPHOCYTES % 12.4 % (20.0-50.0); MEAN CORPUSCULAR VOLUME 96.4 fL (81.0-99.0); MEAN PLATELET VOLUME 10.1 fl (7.4-10.4); MONOCYTES % 4.8 % (2.0-8.0); NEUTROPHILS % 81.6 % (40.0-76.0)
[2022-09-05 07:53] LABS: PLATELET 23 x1000/uL (130-400)
[2022-09-05 08:55] LABS: PLATELET ESTIMATE MARKEDLY DECREASED
[2022-09-05] MEDS: FOLIC ACID 1MG TABLET PO SCH (08:57)
[2022-09-05] MEDS: PHYTONADIONE 10MG/ML AMP SUBCUT SCH (08:57)
[2022-09-05] MEDS: MIDODRINE HCL 2.5MG TABLET PO SCH ×3 (08:57→17:36)
[2022-09-05] MEDS ORDERED: LACTULOSE 20G/30ML UDC PO SCH ×2 (12:00→20:00)
[2022-09-06] VITALS (16 sets, daily range): BP systolic 55–117; BP diastolic 24–94
[2022-09-06] MEDS: THIAMINE HCL 200 MG in SODIUM CHLORIDE 0.9% 98 ML IV SCH (05:23)
[2022-09-06] MEDS: SUCRALFATE 1 G/10 ML UDC PO SCH ×4 (05:56→21:00)
[2022-09-06] MEDS: OMEPRAZOLE 20MG CAPSULE EXTENDED RELEASE PO SCH (05:56)
[2022-09-06] MEDS: BLOOD SUGAR DIAGNOSTIC STRIP TEST SCH ×4 (05:56→21:34)
[2022-09-06] MEDS: INSULIN LISPRO 100 UNITS/ML SUBCUT SCH ×4 (05:56→21:00)
[2022-09-06 06:47] LABS: BASOPHILS % 0.3 % (0.0-2.0); EOSINOPHILS % 0.3 % (0.0-5.0); HEMATOCRIT. 24.4 % (36.0-48.0); HEMOGLOBIN. 8.3 g/dL (12.0-16.0); INR 2.4; MEAN CORPUSCULAR HEMOGLOBIN 32.7 pg (28.0-32.0); MEAN CORPUSCULAR VOLUME 96.7 fL (81.0-99.0); MEAN PLATELET VOLUME 9.3 fl (7.4-10.4); MONOCYTES % 4.8 % (2.0-8.0); NEUTROPHILS % 81.6 % (40.0-76.0); PROTHROMBIN TIME 24.2 sec (9.6-11.0); RED BLOOD CELL COUNT 2.52 mill/uL (4.2-5.4); RED CELL DISTRIBUTION WIDTH 22.3 % (11.6-14.6)
[2022-09-06 06:59] LABS: PLATELET 13 x1000/uL (130-400)
[2022-09-06] MEDS: LACTULOSE 20G/30ML UDC PO SCH ×3 (08:00→16:00)
[2022-09-06] MEDS: FOLIC ACID 1MG TABLET PO SCH (09:00)
[2022-09-06] MEDS: MIDODRINE HCL 2.5MG TABLET PO SCH ×3 (09:00→16:54)
[2022-09-06] MEDS ORDERED: POTASSIUM CHLORIDE INJ 40 MEQ in DEXT 5% WATER 250 ML IV ONE (09:30)
[2022-09-06] MEDS: KCL 20MEQ/100ML X 2 FOR TOTAL KCL 40MEQ/200ML IV SCH ×2 (12:11→14:25)
[2022-09-06] MEDS: DEXTROSE 50% WATER 50ML SYRINGE IV PRN (21:56)
[2022-09-06 22:20] LABS: BG BASE EXCESS -12.3 mmol/L (-2.0-2.0); BG CARBOXYHEMOGLOBIN 1.1 % (0.5-1.5); BG DEOXYHEMOGLOBIN 15.6 % (0.0-5.0); BG FRACTION INSPIRED OXYGEN 100; BG HCO3 ACT 17.5 mmol/L (22.0-26.0); BG METHEMOGLOBIN 0.8 % (0.0-1.5); BG OXYGEN SATURATION 84.1 % (92.0-98.5); BG OXYHEMOGLOBIN 82.5 % (94.0-97.0); BG PCO2 66.5 mmHg (35.0-45.0); BG PH 7.039 (7.350-7.450); BG PO2 64.5 mmHg (75.0-100.0); BG SAMPLE SITE RIGHT RADIAL; BG VENT MODE MASK - NRB
[2022-09-06] MEDS: NOREPINEPHRINE 32 MG in DEXT 5% WATER 218 ML IV PRN (23:48)
[2022-09-07] VITALS (91 sets, daily range): BP systolic 73–139; BP diastolic 38–96
[2022-09-07 00:11] LABS: BG BASE EXCESS -13.1 mmol/L (-2.0-2.0); BG CARBOXYHEMOGLOBIN 0.1 % (0.5-1.5); BG DEOXYHEMOGLOBIN 2.6 % (0.0-5.0); BG FRACTION INSPIRED OXYGEN 100; BG HCO3 ACT 13.2 mmol/L (22.0-26.0); BG METHEMOGLOBIN 0.5 % (0.0-1.5); BG OXYGEN SATURATION 97.4 % (92.0-98.5); BG OXYHEMOGLOBIN 96.8 % (94.0-97.0); BG PCO2 31.7 mmHg (35.0-45.0); BG PH 7.236 (7.350-7.450); BG PO2 115.8 mmHg (75.0-100.0); BG SAMPLE SITE LEFT RADIAL; BG TOTAL HEMOGLOBIN 9.1 g/dL (12.0-18.0); BG VENT MODE VENT - AC
[2022-09-07] MEDS: PROPOFOL 10MG/ML 100ML 100 ML IV PRN ×2 (00:33→09:59)
[2022-09-07] MEDS: INSULIN LISPRO 100 UNITS/ML SUBCUT SCH ×4 (06:12→21:00)
[2022-09-07] MEDS: BLOOD SUGAR DIAGNOSTIC STRIP TEST SCH ×4 (06:12→21:06)
[2022-09-07] MEDS: SUCRALFATE 1 G/10 ML UDC PO SCH ×4 (06:34→21:00)
[2022-09-07] MEDS: THIAMINE HCL 200 MG in SODIUM CHLORIDE 0.9% 98 ML IV SCH (06:34)
[2022-09-07] MEDS: OMEPRAZOLE 20MG CAPSULE EXTENDED RELEASE PO SCH (06:35)
[2022-09-07 09:43] LABS: BG BASE EXCESS -10.1 mmol/L (-2.0-2.0); BG CARBOXYHEMOGLOBIN 0.3 % (0.5-1.5); BG DEOXYHEMOGLOBIN 0.8 % (0.0-5.0); BG FRACTION INSPIRED OXYGEN 100; BG HCO3 ACT 14.7 mmol/L (22.0-26.0); BG METHEMOGLOBIN 0.6 % (0.0-1.5); BG OXYGEN SATURATION 99.2 % (92.0-98.5); BG OXYHEMOGLOBIN 98.3 % (94.0-97.0); BG PH 7.324 (7.350-7.450); BG PO2 323.7 mmHg (75.0-100.0); BG SAMPLE SITE LEFT RADIAL; BG TOTAL HEMOGLOBIN 9.6 g/dL (12.0-18.0); BG VENT MODE VENT - AC
[2022-09-07] MEDS: LACTULOSE 20G/30ML UDC PO SCH ×3 (09:56→21:00)
[2022-09-07] MEDS: MIDODRINE HCL 2.5MG TABLET PO SCH (09:57)
[2022-09-07] MEDS: FOLIC ACID 1MG TABLET PO SCH (09:57)
[2022-09-07] MEDS: PANTOPRAZOLE SODIUM 40 MG/VIAL IV SCH (11:00)
[2022-09-07] MEDS ORDERED: PROPOFOL 10MG/ML 100ML 100 ML IV PRN (11:00)
[2022-09-07] MEDS ORDERED: POTASSIUM CHLORIDE INJ 40 MEQ in DEXT 5% WATER 250 ML IV ONE (11:00)
[2022-09-07] MEDS: METOCLOPRAMIDE HCL 10MG/2ML VIAL IV SCH ×2 (12:00→18:15)
[2022-09-07] MEDS: CEFEPIME 2,000 MG in DEXT 5% WATER 100 ML IV SCH (13:00)
[2022-09-07] MEDS: MIDODRINE HCL 5MG TABLET PO SCH ×2 (13:00→17:24)
[2022-09-07] MEDS ORDERED: KCL 20MEQ/100ML X 2 FOR TOTAL KCL 40MEQ/200ML IV SCH (13:00)
[2022-09-07] MEDS: METRONIDAZOLE 500 MG PREMIX 100 ML IV SCH ×2 (14:00→21:06)
[2022-09-07] MEDS: KCL 20MEQ/100ML X 2 FOR TOTAL KCL 40MEQ/200ML IV SCH ×2 (16:30→18:54)
[2022-09-08] VITALS (87 sets, daily range): BP systolic 72–150; BP diastolic 35–114
[2022-09-08] MEDS ORDERED: SODIUM POLYSTYRENE SULFONATE 15 G/60 ML BOT PO NR (01:30)
[2022-09-08] MEDS: CEFEPIME 2,000 MG in DEXT 5% WATER 100 ML IV SCH ×2 (01:34→14:55)
[2022-09-08] MEDS: METOCLOPRAMIDE HCL 10MG/2ML VIAL IV SCH ×4 (01:35→17:14)
[2022-09-08] MEDS: NOREPINEPHRINE 32 MG in DEXT 5% WATER 218 ML IV PRN ×2 (04:47→21:14)
[2022-09-08 04:49] LABS: EOSINOPHILS % 1.5 % (0.0-5.0); HEMATOCRIT. 26.6 % (36.0-48.0); HEMOGLOBIN. 8.8 g/dL (12.0-16.0); LYMPHOCYTES % 22.7 % (20.0-50.0); MEAN CORPUSCULAR VOLUME 102.4 fL (81.0-99.0); MEAN PLATELET VOLUME 10.1 fl (7.4-10.4); NEUTROPHILS % 70.8 % (40.0-76.0); RED CELL DISTRIBUTION WIDTH 23.3 % (11.6-14.6)
[2022-09-08 05:13] LABS: INR 2.2; PROTHROMBIN TIME 22.4 sec (9.6-11.0)
[2022-09-08 05:18] LABS: PLATELET 25 x1000/uL (130-400)
[2022-09-08 05:19] LABS: CHLORIDE 116 mEq/L (98-107)
[2022-09-08 05:53] LABS: PHOSPHORUS 1.2 mg/dL (2.5-4.9)
[2022-09-08] MEDS: BLOOD SUGAR DIAGNOSTIC STRIP TEST SCH ×4 (06:17→21:02)
[2022-09-08] MEDS: INSULIN LISPRO 100 UNITS/ML SUBCUT SCH ×4 (06:17→21:00)
[2022-09-08] MEDS: SUCRALFATE 1 G/10 ML UDC PO SCH ×4 (06:17→21:02)
[2022-09-08] MEDS: THIAMINE HCL 200 MG in SODIUM CHLORIDE 0.9% 98 ML IV SCH (06:31)
[2022-09-08] MEDS: METRONIDAZOLE 500 MG PREMIX 100 ML IV SCH ×3 (06:31→21:02)
[2022-09-08 08:51] LABS: BG BASE EXCESS -11.5 mmol/L (-2.0-2.0); BG DEOXYHEMOGLOBIN 2.2 % (0.0-5.0); BG FRACTION INSPIRED OXYGEN 40; BG HCO3 ACT 13.5 mmol/L (22.0-26.0); BG METHEMOGLOBIN 0.5 % (0.0-1.5); BG OXYGEN SATURATION 97.8 % (92.0-98.5); BG OXYHEMOGLOBIN 97.3 % (94.0-97.0); BG PCO2 27.3 mmHg (35.0-45.0); BG PH 7.312 (7.350-7.450); BG PO2 116.5 mmHg (75.0-100.0); BG SAMPLE SITE LEFT RADIAL; BG TOTAL HEMOGLOBIN 8.9 g/dL (12.0-18.0); BG VENT MODE VENT - AC
[2022-09-08] MEDS: PANTOPRAZOLE SODIUM 40 MG/VIAL IV SCH (09:07)
[2022-09-08] MEDS: FOLIC ACID 1MG TABLET PO SCH (09:07)
[2022-09-08] MEDS: MIDODRINE HCL 5MG TABLET PO SCH ×3 (09:08→17:14)
[2022-09-08] MEDS ORDERED: MAGNESIUM 2 G PREMIX 50 ML IV NR (16:00)
[2022-09-08] MEDS ORDERED: ALBUMIN HUMAN 25GM/100ML (25%) IV NR (16:30)
[2022-09-08] MEDS: LACTULOSE 20G/30ML UDC PO SCH (21:03)
[2022-09-09] VITALS (106 sets, daily range): BP systolic 53–209; BP diastolic 32–184
[2022-09-09] MEDS: CEFEPIME 2,000 MG in DEXT 5% WATER 100 ML IV SCH ×2 (00:19→13:57)
[2022-09-09] MEDS: METOCLOPRAMIDE HCL 10MG/2ML VIAL IV SCH ×5 (00:19→23:53)
[2022-09-09] MEDS: METRONIDAZOLE 500 MG PREMIX 100 ML IV SCH ×3 (05:13→22:18)
[2022-09-09] MEDS: THIAMINE HCL 200 MG in SODIUM CHLORIDE 0.9% 98 ML IV SCH (05:14)
[2022-09-09] MEDS: BLOOD SUGAR DIAGNOSTIC STRIP TEST SCH ×4 (05:30→21:12)
[2022-09-09] MEDS: INSULIN LISPRO 100 UNITS/ML SUBCUT SCH ×4 (05:30→21:00)
[2022-09-09] MEDS: SUCRALFATE 1 G/10 ML UDC PO SCH ×4 (05:31→21:12)
[2022-09-09 05:44] LABS: PHOSPHORUS 1.1 mg/dL (2.5-4.9)
[2022-09-09 07:34] LABS: BG BASE EXCESS -10.9 mmol/L (-2.0-2.0); BG CARBOXYHEMOGLOBIN 0.3 % (0.5-1.5); BG DEOXYHEMOGLOBIN 2.1 % (0.0-5.0); BG HCO3 ACT 14.2 mmol/L (22.0-26.0); BG METHEMOGLOBIN 0.5 % (0.0-1.5); BG OXYGEN SATURATION 97.9 % (92.0-98.5); BG OXYHEMOGLOBIN 97.1 % (94.0-97.0); BG PCO2 28.7 mmHg (35.0-45.0); BG PH 7.312 (7.350-7.450); BG PO2 119.7 mmHg (75.0-100.0); BG SAMPLE SITE RIGHT RADIAL; BG VENT MODE VENT- PRVC
[2022-09-09] MEDS: PANTOPRAZOLE SODIUM 40 MG/VIAL IV SCH (09:27)
[2022-09-09] MEDS: FOLIC ACID 1MG TABLET PO SCH (09:27)
[2022-09-09] MEDS: MIDODRINE HCL 5MG TABLET PO SCH ×3 (09:27→18:03)
[2022-09-09 10:58] LABS: BASOPHILS % 0.6 % (0.0-2.0); EOSINOPHILS % 0.8 % (0.0-5.0); HEMOGLOBIN. 7.6 g/dL (12.0-16.0); LYMPHOCYTES % 18.6 % (20.0-50.0); MEAN CORPUSCULAR HEMOGLOBIN 34.6 pg (28.0-32.0); MEAN CORPUSCULAR VOLUME 100.4 fL (81.0-99.0); MEAN PLATELET VOLUME 8.5 fl (7.4-10.4); MONOCYTES % 3.5 % (2.0-8.0); NEUTROPHILS % 76.5 % (40.0-76.0); RED BLOOD CELL COUNT 2.19 mill/uL (4.2-5.4); RED CELL DISTRIBUTION WIDTH 23.3 % (11.6-14.6)
[2022-09-09 11:02] LABS: PLATELET 19 x1000/uL (130-400)
[2022-09-09] MEDS ORDERED: SODIUM PHOS,M-BASIC-D-BASIC 10 MM in DEXT 5% WATER 246.6667 ML IV NR (13:00)
[2022-09-09] MEDS ORDERED: SODIUM BICARBONATE 8.4% 1 MEQ/ML 50ML SYR IV NR (13:04)
[2022-09-09] MEDS: NOREPINEPHRINE 32 MG in DEXT 5% WATER 218 ML IV PRN (13:18)
[2022-09-09] MEDS: SODIUM BICARBONATE 100 MEQ in DEXTROSE 5% WATER 1,000 ML IV SCH (14:51)
[2022-09-09 15:23] LABS: CREATINE KINASE 15 IU/L (26-192)
[2022-09-09] MEDS: GUAIFENESIN 200MG/10ML SUGAR FREE UDC PO PRN (21:11)
[2022-09-09] MEDS: LACTULOSE 20G/30ML UDC PO SCH (21:12)
[2022-09-10] VITALS (104 sets, daily range): BP systolic 88–135; BP diastolic 58–96
[2022-09-10] MEDS: CEFEPIME 2,000 MG in DEXT 5% WATER 100 ML IV SCH ×2 (00:49→13:23)
[2022-09-10] MEDS: METRONIDAZOLE 500 MG PREMIX 100 ML IV SCH ×3 (05:57→21:09)
[2022-09-10] MEDS: THIAMINE HCL 200 MG in SODIUM CHLORIDE 0.9% 98 ML IV SCH (05:57)
[2022-09-10] MEDS: METOCLOPRAMIDE HCL 10MG/2ML VIAL IV SCH ×3 (05:57→17:35)
[2022-09-10] MEDS: SODIUM BICARBONATE 100 MEQ in DEXTROSE 5% WATER 1,000 ML IV SCH ×2 (05:58→20:44)
[2022-09-10 06:12] LABS: BASOPHILS % 0.5 % (0.0-2.0); EOSINOPHILS % 1.1 % (0.0-5.0); HEMATOCRIT. 21.2 % (36.0-48.0); HEMOGLOBIN. 7.2 g/dL (12.0-16.0); LYMPHOCYTES % 16.1 % (20.0-50.0); MEAN CORPUSCULAR HEMOGLOBIN 33.8 pg (28.0-32.0); MEAN CORPUSCULAR VOLUME 99.5 fL (81.0-99.0); MEAN PLATELET VOLUME 8.8 fl (7.4-10.4); NEUTROPHILS % 79.3 % (40.0-76.0); RED BLOOD CELL COUNT 2.13 mill/uL (4.2-5.4); RED CELL DISTRIBUTION WIDTH 23.2 % (11.6-14.6)
[2022-09-10 06:20] LABS: PLATELET 17 x1000/uL (130-400)
[2022-09-10] MEDS: SUCRALFATE 1 G/10 ML UDC PO SCH ×4 (06:36→20:45)
[2022-09-10] MEDS: ACETAMINOPHEN 325MG TABLET PO PRN (06:36)
[2022-09-10 06:49] LABS: INR 2.2; PROTHROMBIN TIME 21.9 sec (9.6-11.0)
[2022-09-10] MEDS: BLOOD SUGAR DIAGNOSTIC STRIP TEST SCH ×3 (07:21→16:30)
[2022-09-10] MEDS: INSULIN LISPRO 100 UNITS/ML SUBCUT SCH ×3 (07:29→17:36)
[2022-09-10] MEDS: NOREPINEPHRINE 32 MG in DEXT 5% WATER 218 ML IV PRN (07:29)
[2022-09-10] MEDS ORDERED: POTASSIUM CHLORIDE INJ 40 MEQ in DEXT 5% WATER 250 ML IV ONE (07:30)
[2022-09-10] MEDS ORDERED: LORAZEPAM 2MG/ML CPJ IV PRN (08:45)
[2022-09-10 09:01] LABS: BG BASE EXCESS -10.4 mmol/L (-2.0-2.0); BG CARBOXYHEMOGLOBIN 0.3 % (0.5-1.5); BG DEOXYHEMOGLOBIN 12.6 % (0.0-5.0); BG FRACTION INSPIRED OXYGEN 30; BG HCO3 ACT 13.8 mmol/L (22.0-26.0); BG METHEMOGLOBIN 0.2 % (0.0-1.5); BG OXYGEN SATURATION 87.3 % (92.0-98.5); BG OXYHEMOGLOBIN 86.9 % (94.0-97.0); BG PCO2 25.3 mmHg (35.0-45.0); BG PH 7.354 (7.350-7.450); BG PO2 55.2 mmHg (75.0-100.0); BG SAMPLE SITE RIGHT RADIAL; BG TOTAL HEMOGLOBIN 9.3 g/dL (12.0-18.0); BG TOTAL RESPIRATORY RATE 25 b/min; BG VENT MODE VENT - APRV
[2022-09-10] MEDS: PANTOPRAZOLE SODIUM 40 MG/VIAL IV SCH (09:02)
[2022-09-10] MEDS: MIDODRINE HCL 5MG TABLET PO SCH ×3 (09:02→17:35)
[2022-09-10] MEDS: FOLIC ACID 1MG TABLET PO SCH (09:02)
[2022-09-10] MEDS: KCL 20MEQ/100ML X 2 FOR TOTAL KCL 40MEQ/200ML IV SCH ×2 (09:56→12:46)
[2022-09-10] MEDS: DOCUSATE SODIUM SUGAR FREE 100MG/10ML UDC NG SCH (12:50)
[2022-09-10] MEDS ORDERED: MAGNESIUM 2 G PREMIX 50 ML IV NR (14:00)
[2022-09-10] MEDS ORDERED: POTASSIUM PHOS,M-BASIC-D-BASIC 20 MMOL in DEXT 5% WATER 243.3333 ML IV ONE (16:00)
[2022-09-10] MEDS ORDERED: ALBUMIN HUMAN 25GM/100ML (25%) IV NR (16:30)
[2022-09-10] MEDS: LACTULOSE 20G/30ML UDC PO SCH (20:45)
[2022-09-11] VITALS (112 sets, daily range): BP systolic 77–135; BP diastolic 46–99
[2022-09-11] MEDS: BLOOD SUGAR DIAGNOSTIC STRIP TEST SCH ×5 (00:05→23:39)
[2022-09-11] MEDS: METOCLOPRAMIDE HCL 10MG/2ML VIAL IV SCH ×5 (00:36→23:39)
[2022-09-11] MEDS: CEFEPIME 2,000 MG in DEXT 5% WATER 100 ML IV SCH ×2 (00:36→12:14)
[2022-09-11] MEDS: INSULIN LISPRO 100 UNITS/ML SUBCUT SCH ×5 (00:37→23:39)
[2022-09-11 05:50] LABS: BASOPHILS % 0.5 % (0.0-2.0); HEMOGLOBIN. 7.9 g/dL (12.0-16.0); LYMPHOCYTES % 14.6 % (20.0-50.0); MEAN CORPUSCULAR HEMOGLOBIN 33.9 pg (28.0-32.0); MEAN CORPUSCULAR VOLUME 98.5 fL (81.0-99.0); MEAN PLATELET VOLUME 9.3 fl (7.4-10.4); MONOCYTES % 3.6 % (2.0-8.0); NEUTROPHILS % 80.3 % (40.0-76.0); RED BLOOD CELL COUNT 2.34 mill/uL (4.2-5.4); RED CELL DISTRIBUTION WIDTH 19.8 % (11.6-14.6)
[2022-09-11 06:00] LABS: INR 2.1; PROTHROMBIN TIME 21.3 sec (9.6-11.0)
[2022-09-11 06:01] LABS: PHOSPHORUS 1.7 mg/dL (2.5-4.9)
[2022-09-11] MEDS: SUCRALFATE 1 G/10 ML UDC PO SCH ×4 (06:03→22:07)
[2022-09-11] MEDS: METRONIDAZOLE 500 MG PREMIX 100 ML IV SCH ×3 (06:03→22:07)
[2022-09-11] MEDS: THIAMINE HCL 200 MG in SODIUM CHLORIDE 0.9% 98 ML IV SCH (06:03)
[2022-09-11 06:17] LABS: PLATELET 26 x1000/uL (130-400)
[2022-09-11] MEDS: NOREPINEPHRINE 32 MG in DEXT 5% WATER 218 ML IV PRN (07:30)
[2022-09-11 07:39] LABS: BG BASE EXCESS -7.6 mmol/L (-2.0-2.0); BG CARBOXYHEMOGLOBIN 1.6 % (0.5-1.5); BG HCO3 ACT 17.1 mmol/L (22.0-26.0); BG METHEMOGLOBIN 0.3 % (0.0-1.5); BG OXYGEN SATURATION 86.7 % (92.0-98.5); BG OXYHEMOGLOBIN 85.1 % (94.0-97.0); BG PCO2 31.7 mmHg (35.0-45.0); BG PH 7.351 (7.350-7.450); BG PO2 50.7 mmHg (75.0-100.0); BG SAMPLE SITE RIGHT RADIAL; BG TOTAL HEMOGLOBIN 8.5 g/dL (12.0-18.0); BG VENT MODE VENT - AC
[2022-09-11] MEDS ORDERED: ALBUMIN HUMAN 25GM/100ML (25%) IV NR (08:00)
[2022-09-11] MEDS: IPRATROPIUM/ALBUTEROL 0.5-3(2.5)MG/3ML NEB NEB PRN ×3 (08:13→16:26)
[2022-09-11] MEDS: DOCUSATE SODIUM SUGAR FREE 100MG/10ML UDC NG SCH (08:16)
[2022-09-11] MEDS: PANTOPRAZOLE SODIUM 40 MG/VIAL IV SCH (08:16)
[2022-09-11] MEDS: MULTIVITAMINS,THER W-MINERALS TABLET PO SCH (08:16)
[2022-09-11] MEDS: FOLIC ACID 1MG TABLET PO SCH (08:16)
[2022-09-11] MEDS: MIDODRINE HCL 5MG TABLET PO SCH ×3 (08:16→17:06)
[2022-09-11] MEDS ORDERED: POTASSIUM PHOS,M-BASIC-D-BASIC 20 MMOL in DEXT 5% WATER 243.3333 ML IV SCH (09:00)
[2022-09-11 09:47] LABS: BG CARBOXYHEMOGLOBIN 0.7 % (0.5-1.5); BG DEOXYHEMOGLOBIN 7.4 % (0.0-5.0); BG HCO3 ACT 16.3 mmol/L (22.0-26.0); BG METHEMOGLOBIN 0.5 % (0.0-1.5); BG OXYGEN SATURATION 92.5 % (92.0-98.5); BG OXYHEMOGLOBIN 91.4 % (94.0-97.0); BG PCO2 28.5 mmHg (35.0-45.0); BG PH 7.375 (7.350-7.450); BG PO2 64.9 mmHg (75.0-100.0); BG SAMPLE SITE RIGHT RADIAL; BG TOTAL HEMOGLOBIN 8.1 g/dL (12.0-18.0); BG VENT MODE VENT - AC
[2022-09-11 10:06] LABS: HEMATOCRIT 21.6 % (36.0-48.0); HEMOGLOBIN 7.6 g/dL (12.0-16.0)
[2022-09-11 10:07] LABS: INR 2.3; PROTHROMBIN TIME 23.6 sec (9.6-11.0)
[2022-09-11] MEDS ORDERED: LIDOCAINE HCL/PF 1% 10 MG/ML 5ML VIAL ONE (12:59)
[2022-09-11 13:49] LABS: HEPATITIS B SURFACE ANTIGEN NEGATIVE
[2022-09-11] MEDS ORDERED: ALBUMIN HUMAN 25GM/100ML (25%) IV SCH (15:00)
[2022-09-11] MEDS ORDERED: PHYTONADIONE 10 MG in DEXTROSE 5% WATER 49 ML IV NR (15:00)
[2022-09-11 15:10] LABS: INR 1.6
[2022-09-11 15:17] LABS: HEMATOCRIT 18.6 % (36.0-48.0); HEMOGLOBIN 6.6 g/dL (12.0-16.0)
[2022-09-11 20:18] LABS: HEMOGLOBIN 8.8 g/dL (12.0-16.0)
[2022-09-11] MEDS: LACTULOSE 20G/30ML UDC PO SCH (22:07)
[2022-09-12] VITALS (101 sets, daily range): BP systolic 52–149; BP diastolic 22–110
[2022-09-12] MEDS: CEFEPIME 2,000 MG in DEXT 5% WATER 100 ML IV SCH ×2 (00:34→13:23)
[2022-09-12] MEDS: NOREPINEPHRINE 32 MG in DEXT 5% WATER 218 ML IV PRN ×3 (00:35→23:09)
[2022-09-12 04:33] LABS: BASOPHILS % 0.2 % (0.0-2.0); EOSINOPHILS % 0.6 % (0.0-5.0); HEMATOCRIT. 24.2 % (36.0-48.0); HEMOGLOBIN. 8.5 g/dL (12.0-16.0); LYMPHOCYTES % 10.7 % (20.0-50.0); MEAN CORPUSCULAR HEMOGLOBIN 33.7 pg (28.0-32.0); MEAN CORPUSCULAR VOLUME 95.7 fL (81.0-99.0); MEAN PLATELET VOLUME 10.2 fl (7.4-10.4); MONOCYTES % 3.5 % (2.0-8.0); RED BLOOD CELL COUNT 2.53 mill/uL (4.2-5.4); RED CELL DISTRIBUTION WIDTH 17.7 % (11.6-14.6)
[2022-09-12 04:43] LABS: INR 2.9; PROTHROMBIN TIME 28.9 sec (9.6-11.0)
[2022-09-12 04:51] LABS: PHOSPHORUS 1.7 mg/dL (2.5-4.9)
[2022-09-12 04:54] LABS: PLATELET 24 x1000/uL (130-400)
[2022-09-12] MEDS: INSULIN LISPRO 100 UNITS/ML SUBCUT SCH ×3 (05:28→18:00)
[2022-09-12] MEDS: THIAMINE HCL 200 MG in SODIUM CHLORIDE 0.9% 98 ML IV SCH (05:28)
[2022-09-12] MEDS: METRONIDAZOLE 500 MG PREMIX 100 ML IV SCH ×2 (05:28→14:37)
[2022-09-12] MEDS: BLOOD SUGAR DIAGNOSTIC STRIP TEST SCH ×4 (05:28→23:57)
[2022-09-12] MEDS: METOCLOPRAMIDE HCL 10MG/2ML VIAL IV SCH ×3 (05:28→18:45)
[2022-09-12] MEDS: SUCRALFATE 1 G/10 ML UDC PO SCH ×4 (05:30→20:25)
[2022-09-12] MEDS: VASOPRESSIN 20 UNIT in SODIUM CHLORIDE 0.9% 99 ML IV PRN ×2 (07:33→18:46)
[2022-09-12] MEDS: PANTOPRAZOLE SODIUM 40 MG/VIAL IV SCH (08:13)
[2022-09-12] MEDS: MULTIVITAMINS,THER W-MINERALS TABLET PO SCH (08:13)
[2022-09-12] MEDS: FOLIC ACID 1MG TABLET PO SCH (08:13)
[2022-09-12] MEDS: MIDODRINE HCL 5MG TABLET PO SCH ×3 (08:13→16:24)
[2022-09-12 08:15] LABS: BG BASE EXCESS -9.5 mmol/L (-2.0-2.0); BG CARBOXYHEMOGLOBIN 0.1 % (0.5-1.5); BG DEOXYHEMOGLOBIN 11.9 % (0.0-5.0); BG FRACTION INSPIRED OXYGEN 50; BG HCO3 ACT 15.9 mmol/L (22.0-26.0); BG METHEMOGLOBIN 0.7 % (0.0-1.5); BG OXYHEMOGLOBIN 87.3 % (94.0-97.0); BG PCO2 32.6 mmHg (35.0-45.0); BG PH 7.305 (7.350-7.450); BG PO2 60.5 mmHg (75.0-100.0); BG SAMPLE SITE LEFT RADIAL; BG TOTAL HEMOGLOBIN 8.5 g/dL (12.0-18.0); BG VENT MODE VENT - AC
[2022-09-12] MEDS: DOCUSATE SODIUM SUGAR FREE 100MG/10ML UDC NG SCH (08:17)
[2022-09-12] MEDS ORDERED: MAGNESIUM 2 G PREMIX 50 ML IV SCH (09:00)
[2022-09-12] MEDS ORDERED: POTASSIUM PHOS,M-BASIC-D-BASIC 30 MMOL in DEXT 5% WATER 500 ML IV SCH (09:00)
[2022-09-12] MEDS: LACTULOSE 20G/30ML UDC PO SCH ×2 (09:41→16:24)
[2022-09-12] MEDS ORDERED: ALBUMIN HUMAN 25GM/100ML (25%) IV NR (15:00)
[2022-09-12 17:09] LABS: CHLORIDE 102 mEq/L (98-107)
[2022-09-12] MEDS: PHENYLEPHRINE 50 MG in DEXT 5% WATER 245 ML IV PRN (23:16)
[2022-09-13] VITALS (83 sets, daily range): BP systolic 40–143; BP diastolic 12–74
[2022-09-13] MEDS: DEXTROSE 50% WATER 50ML SYRINGE IV PRN ×2 (00:01→17:44)
[2022-09-13] MEDS: METOCLOPRAMIDE HCL 10MG/2ML VIAL IV SCH ×3 (00:18→12:14)
[2022-09-13] MEDS: VASOPRESSIN 20 UNIT in SODIUM CHLORIDE 0.9% 99 ML IV PRN ×2 (05:09→13:16)
[2022-09-13 05:16] LABS: HEMATOCRIT. 24.9 % (36.0-48.0); HEMOGLOBIN. 8.1 g/dL (12.0-16.0); MEAN CORPUSCULAR HEMOGLOBIN 33.9 pg (28.0-32.0); MEAN CORPUSCULAR VOLUME 103.9 fL (81.0-99.0); MEAN PLATELET VOLUME 10.6 fl (7.4-10.4); RED CELL DISTRIBUTION WIDTH 19.9 % (11.6-14.6)
[2022-09-13 05:35] LABS: PROTHROMBIN TIME 55.8 sec (9.6-11.0)
[2022-09-13 05:36] LABS: PHOSPHORUS 4.8 mg/dL (2.5-4.9)
[2022-09-13 05:43] LABS: PLATELET 23 x1000/uL (130-400)
[2022-09-13] MEDS: INSULIN LISPRO 100 UNITS/ML SUBCUT SCH ×4 (06:00→18:00)
[2022-09-13] MEDS: BLOOD SUGAR DIAGNOSTIC STRIP TEST SCH ×3 (06:06→18:12)
[2022-09-13] MEDS: SUCRALFATE 1 G/10 ML UDC PO SCH ×3 (06:18→16:30)
[2022-09-13] MEDS: THIAMINE HCL 200 MG in SODIUM CHLORIDE 0.9% 98 ML IV SCH (06:18)
[2022-09-13] MEDS: NOREPINEPHRINE 32 MG in DEXT 5% WATER 218 ML IV PRN ×3 (06:18→13:05)
[2022-09-13] MEDS: PHENYLEPHRINE 50 MG in DEXT 5% WATER 245 ML IV PRN ×3 (06:18→15:08)
[2022-09-13 08:30] LABS: NUCLEATED RED BLOOD CELLS 2 /100 WBC
[2022-09-13] MEDS ORDERED: MIDODRINE HCL 5MG TABLET PO SCH (08:30)
[2022-09-13 08:31] LABS: PLATELET ESTIMATE NORMAL
[2022-09-13 08:37] LABS: BG BASE EXCESS -23.1 mmol/L (-2.0-2.0); BG CARBOXYHEMOGLOBIN 0.3 % (0.5-1.5); BG DEOXYHEMOGLOBIN 9.1 % (0.0-5.0); BG HCO3 ACT 7.5 mmol/L (22.0-26.0); BG METHEMOGLOBIN 0.5 % (0.0-1.5); BG OXYGEN SATURATION 90.8 % (92.0-98.5); BG OXYHEMOGLOBIN 90.1 % (94.0-97.0); BG PCO2 34.8 mmHg (35.0-45.0); BG PH 6.952 (7.350-7.450); BG SAMPLE SITE RIGHT RADIAL; BG TOTAL HEMOGLOBIN 8.7 g/dL (12.0-18.0); BG VENT MODE VENT - AC
[2022-09-13] MEDS: LACTULOSE 20G/30ML UDC PO SCH ×2 (08:44→17:00)
[2022-09-13] MEDS: DOCUSATE SODIUM SUGAR FREE 100MG/10ML UDC NG SCH (08:44)
[2022-09-13] MEDS: PANTOPRAZOLE SODIUM 40 MG/VIAL IV SCH (08:45)
[2022-09-13] MEDS: MIDODRINE HCL 5MG TABLET PO SCH ×3 (08:45→17:44)
[2022-09-13] MEDS: FOLIC ACID 1MG TABLET PO SCH (08:45)
[2022-09-13] MEDS: MULTIVITAMINS,THER W-MINERALS TABLET PO SCH (08:45)
[2022-09-13] MEDS ORDERED: SODIUM BICARBONATE 8.4% 1 MEQ/ML 50ML SYR IV ONE (09:15)
[2022-09-13] MEDS ORDERED: SODIUM BICARBONATE 8.4% 1 MEQ/ML 50ML SYR IV SCH ×3 (09:15→13:45)
[2022-09-13] MEDS: DOPAMINE 400MG/250ML PREMIX 250 ML IV PRN ×2 (10:42→15:53)
[2022-09-13] MEDS: EPINEPHRINE 10 MG in SODIUM CHLORIDE 0.9% 240 ML IV PRN ×2 (11:56→16:42)
[2022-09-13 12:46] LABS: BG BASE EXCESS -22.5 mmol/L (-2.0-2.0); BG CARBOXYHEMOGLOBIN 0.3 % (0.5-1.5); BG DEOXYHEMOGLOBIN 5.8 % (0.0-5.0); BG HCO3 ACT 7.4 mmol/L (22.0-26.0); BG METHEMOGLOBIN 0.4 % (0.0-1.5); BG OXYGEN SATURATION 94.2 % (92.0-98.5); BG OXYHEMOGLOBIN 93.5 % (94.0-97.0); BG PCO2 31.9 mmHg (35.0-45.0); BG PH 6.985 (7.350-7.450); BG PO2 88.5 mmHg (75.0-100.0); BG SAMPLE SITE RIGHT RADIAL; BG TOTAL HEMOGLOBIN 8.4 g/dL (12.0-18.0); BG VENT MODE VENT - AC
[2022-09-13] MEDS ORDERED: SODIUM BICARBONATE 100 MEQ in SODIUM CHLORIDE 0.45% 1,000 ML IV SCH (13:00)
== END 2022-09-13 18:33 | DRG 720 ==
LOC: ER 15:27 → EDBEDREQ 16:16 → EDBEDREQSVC 16:16 → EDBEDREQTM 16:16 → 3WST 18:50 → EDBEDREQ 18:54 → EDBEDREQSVC 18:54 → EDBEDREQTM 18:54 → ENRESERV 18:58 → 3WST 23:11 → MICUNO 09-06 23:15
PROVIDERS: ADMIT Internal Medicine; ATTEND Internal Medicine
PROC: 30233N1 Transfusion of Nonautologous Red Blood Cells into Peripheral Vein, Percutaneous Approach (ICD-10-PCS; 2022-08-18)
PROC: 30233R1 Transfusion of Nonautologous Platelets into Peripheral Vein, Percutaneous Approach (ICD-10-PCS; 2022-08-20)
PROC: 30233K1 Transfusion of Nonautologous Frozen Plasma into Peripheral Vein, Percutaneous Approach (ICD-10-PCS; 2022-08-21)
PROC: 02HV33Z Insertion of Infusion Device into Superior Vena Cava, Percutaneous Approach (ICD-10-PCS; 2022-08-21)
PROC: B548ZZA Ultrasonography of Superior Vena Cava, Guidance (ICD-10-PCS; 2022-08-21)
PROC: 0DJ08ZZ Inspection of Upper Intestinal Tract, Via Natural or Artificial Opening Endoscopic (ICD-10-PCS; 2022-08-24)
PROC: 0DBH8ZX Excision of Cecum, Via Natural or Artificial Opening Endoscopic, Diagnostic (ICD-10-PCS; 2022-08-25)
PROC: 06HY33Z Insertion of Infusion Device into Lower Vein, Percutaneous Approach (ICD-10-PCS; 2022-08-29)
PROC: 0BH17EZ Insertion of Endotracheal Airway into Trachea, Via Natural or Artificial Opening (ICD-10-PCS; principal; 2022-09-06)
PROC: 5A1955Z Respiratory Ventilation, Greater than 96 Consecutive Hours (ICD-10-PCS; 2022-09-06)
PROC: 02HV33Z Insertion of Infusion Device into Superior Vena Cava, Percutaneous Approach (ICD-10-PCS; 2022-09-09)
PROC: B548ZZA Ultrasonography of Superior Vena Cava, Guidance (ICD-10-PCS; 2022-09-09)
PROC: 06HY33Z Insertion of Infusion Device into Lower Vein, Percutaneous Approach (ICD-10-PCS; 2022-09-11)
DX: A41.9 Sepsis, unspecified organism (principal); N17.0 Acute kidney failure with tubular necrosis; K76.7 Hepatorenal syndrome; J96.01 Acute respiratory failure with hypoxia; I63.511 Cerebral infarction due to unspecified occlusion or stenosis of right middle cerebral artery; D61.818 Other pancytopenia; E72.20 Disorder of urea cycle metabolism, unspecified; E43 Unspecified severe protein-calorie malnutrition; R65.21 Severe sepsis with septic shock; J91.8 Pleural effusion in other conditions classified elsewhere; J18.9 Pneumonia, unspecified organism; G93.41 Metabolic encephalopathy; Z20.822 Contact with and (suspected) exposure to COVID-19; Z66 Do not resuscitate; D69.6 Thrombocytopenia, unspecified; I24.8 Other forms of acute ischemic heart disease; E87.20 Acidosis, unspecified; K22.2 Esophageal obstruction; K70.31 Alcoholic cirrhosis of liver with ascites; D63.1 Anemia in chronic kidney disease; D68.8 Other specified coagulation defects; D68.9 Coagulation defect, unspecified; I13.0 Hypertensive heart and chronic kidney disease with heart failure and stage 1 through stage 4 chronic kidney disease, or unspecified chronic kidney disease; K76.82 Hepatic encephalopathy; K76.6 Portal hypertension; K31.89 Other diseases of stomach and duodenum; E87.5 Hyperkalemia; K57.90 Diverticulosis of intestine, part unspecified, without perforation or abscess without bleeding; K44.9 Diaphragmatic hernia without obstruction or gangrene; I95.9 Hypotension, unspecified; N39.0 Urinary tract infection, site not specified; I50.32 Chronic diastolic (congestive) heart failure; N18.30 Chronic kidney disease, stage 3 unspecified; E11.65 Type 2 diabetes mellitus with hyperglycemia; E11.22 Type 2 diabetes mellitus with diabetic chronic kidney disease; E11.42 Type 2 diabetes mellitus with diabetic polyneuropathy; B18.2 Chronic viral hepatitis C; G89.29 Other chronic pain; I48.91 Unspecified atrial fibrillation; J98.11 Atelectasis; F12.90 Cannabis use, unspecified, uncomplicated; F10.239 Alcohol dependence with withdrawal, unspecified; Z59.00 Homelessness unspecified
CPT/HCPCS: 31500; 36415; 36556; 36573; 36600; 70470; 70551; 71045; 71260; 76700; 76770; 76937; 80048; 80053; 80061; 80076; 80305; 80320; 81003; 82040; 82140; 82248; 82270; 82375; 82550; 82607; 82728; 82746; 82805; 82962; 83036; 83540; 83550; 83605; 83615; 83735; 83880; 84100; 84145; 84439; 84443; 84478; 84484; 84703; 85014; 85018; 85025; 85027; 85044; 85049; 85384; 86705; 86709; 86803; 86850; 86900; 86920; 86927; 87070; 87340; 87426; 88305; 92523; 92610; 93005; 93306; 93970; 94002; 94003; 94640; 97116; 97162; 97166; 97530; 97535; 99291; A6261; C1725; C1752; C1887; C1893; C9113; C9803; J0692; J0696; J1100; J1265; J1815; J2060; J2250; J2354; J2370; J2405; J2704; J2765; J3010; J3370; J3411; J3430; J3475; J3480; J3490; J7030; J7050; J7060; J7070; J7121; P9016; P9017; P9034; P9047; Q9967; G0480